=== PATIENT | female | born 1990 | race Caucasian/White ===

== ENCOUNTER 2019-10-13 20:47 | Emergency (ER) | payer MEDICAID ==
[~2019-10-13] VITALS: Ht 167.6 cm; Wt 90.1 kg
[2019-10-13 20:49] VITALS: BP 127/70
--- NOTE | 2019-10-13 21:33 | NUR ---
PT D/C WITH D/C SUMMARY AND SCRIPTS. PT VERBALIZES [facility] AND F/U INSTRUCTIONS. NARCOTIC SHEET SIGNED AND PLACED WITH PT CHART. PT AMBULATES TO REGISTRATION DESK WITH STEADY GAIT FOR D/C HOME.
== END 2019-10-13 21:38 ==
LOC: ED 21:00
DX: K08.89 Other specified disorders of teeth and supporting structures (principal)
CPT/HCPCS: 99283